=== PATIENT | male | born 1990 | race Caucasian/White ===

== ENCOUNTER 2016-08-15 07:14 | Emergency (ER) | payer OTHER ==
[~2016-08-15] VITALS: Ht 177.8 cm; Wt 68.0 kg
[2016-08-15 07:15] VITALS: BP 135/78; PULSE 97; RESP 18; TEMP 99.6; O2SAT 99
--- NOTE | 2016-08-15 07:15 | NUR ---
BROUGHT BACK TO BED #8 AND TRIAGED. REPORT GIVEN TO KAREL
--- NOTE | 2016-08-15 07:20 | NUR ---
Dr. Shipley at bedside examining patient.New orders received.
--- NOTE | 2016-08-15 07:25 | NUR ---
Patient brought in by mother with chief complaint of chills, fatigue, nausea and headache 5/10.Patient presents as awake,alert and oriented x 4,lethargic, verbalizing 5/10 headache.He states, "I've been feeling chills, nausea and tired since last night."No other complaints, injury per patient, none noted.
[2016-08-15] MEDS ORDERED: NACL 0.9% 1,000 ML IV ONE (07:45)
[2016-08-15] MEDS ORDERED: ACETAMINOPHEN 500 MG TABLET PO ONE (07:45)
[2016-08-15] MEDS ORDERED: cefTRIAXone 1 GM IVPB PREMIX 50 ML IV ONE (07:45)
--- NOTE | 2016-08-15 07:50 | NUR ---
Patient off unit for CT scan.
[2016-08-15 07:51] LABS: BILIRUBIN,URINE NEGATIVE (NEGATIVE); CLARITY/URINE CLEAR (CLEAR); COLOR,URINE YELLOW (YELLOW); GLUCOSE,URINE NEGATIVE (NEGATIVE); KETONES,URINE 2+ (NEGATIVE); LEUKOCYTE ESTERASE ,URINE NEGATIVE (NEGATIVE); NITRITE, URINE NEGATIVE (NEGATIVE); PH,URINE 6.5 (5.0-8.0); PROTEIN URINE TRACE (NEGATIVE)
[2016-08-15 07:54] LABS: BLOOD, URINE TRACE (NEGATIVE)
[2016-08-15 07:57] LABS: BACTERIA,URINE FEW /HPF (None Seen); MUCUS,URINE None Seen /LPF (None Seen); RBC,URINE 0-3 /HPF (0-3); WBC,URINE 0-3 /HPF (0-3)
[2016-08-15 08:04] LABS: BARBITURATE, URINE NEGATIVE (NEG <=200); BENZODIAZEPINE, URINE NEGATIVE (NEG <=150); CANNABINOID, URINE NEGATIVE (NEG <=50); COCAINE, URINE NEGATIVE (NEG <=150); METHAMPHETAMINES SCREEN,URINE NEGATIVE (NEG <=500); OPIATE, URINE NEGATIVE (NEG <=100); PHENCYCLIDINE SCREEN,URINE NEGATIVE (NEG <=25); URINE AMPHETAMINE NEGATIVE (NEG <=500); URINE METHADONE NEGATIVE (NEG <=200)
[2016-08-15 08:05] LABS: UR TRICYCLIC ANTIDEPRESSANTS NEGATIVE (NEG <=300); URINE OXYCODONE SCREEN NEGATIVE (NEG <=100); URINE PROPOXYPHENE SCREEN NEGATIVE (NEG <=300)
--- NOTE | 2016-08-15 08:10 | NUR ---
Pt returned from CT to room ED 8.
--- NOTE | 2016-08-15 08:30 | NUR ---
Patient medicated as ordered.
[2016-08-15 08:59] LABS: PROTHROMBIN TIME 11.2 SECS (9.5-12.5)
[2016-08-15 09:09] LABS: ANION GAP 10 (5-15); CALCIUM 9.5 mg/dL (8.4-11.0); CHLORIDE 101 mmol/L (98-107); CREATININE 1.03 mg/dL (0.55-1.30); GLUCOSE 127 mg/dL (70-99); POTASSIUM 3.9 mmol/L (3.5-5.1); SODIUM SERUM 136 mmol/L (136-145); UREA NITROGEN, BLOOD 9 mg/dL (8-21)
[2016-08-15 09:10] LABS: GFR AFRICAN AMERICAN 113 mL/min (>90)
[2016-08-15 09:17] LABS: BASOPHILS # (AUTO) 0.1 K/uL (0.0-0.2); BASOPHILS % (AUTO) 0.6 % (0.0-2.0); EOSINOPHILS # (AUTO) 0.2 K/uL (0.0-0.4); EOSINOPHILS % (AUTO) 1.1 % (0.0-4.0); HEMATOCRIT 45.4 % (36-54); HEMOGLOBIN 15.4 g/dL (14.0-18.0); LYMPHOCYTES # (AUTO) 0.9 K/uL (1.0-5.5); LYMPHOCYTES % (AUTO) 4.6 % (20.5-51.5); MEAN CORPUSCULAR HEMOGLOBIN 29 pg (27-31); MEAN CORPUSCULAR HGB CONC 34 % (32-36); MEAN CORPUSCULAR VOLUME 85 fL (79.0-98.0); MONOCYTES # (AUTO) 1.2 K/uL (0.0-1.0); MONOCYTES % (AUTO) 6.1 % (1.7-9.3); NEUTROPHILS # (AUTO) 16.6 K/uL (1.8-7.7); NEUTROPHILS % (AUTO) 87.6 % (40.0-70.0); PLATELET COUNT (AUTO) 247 K/uL (130-430); RED BLOOD CELL COUNT(AUTO) 5.32 MIL/uL (4.2-6.2); RED CELL DISTRIBUTION WIDTH 12.1 % (9.0-15.0)
[2016-08-15 09:18] LABS: ALANINE AMINOTRANSFERASE 20 U/L (12-78); ALBUMIN 4.7 g/dL (3.4-4.8); ASPARTATE AMINOTRANSFERASE 11 U/L (10-37); FREE T4 (FREE THYROXINE) 0.8 ng/dL (0.6-1.6); TOTAL BILIRUBIN 0.7 mg/dL (0.0-1.0); TOTAL PROTEIN, SERUM 7.7 g/dL (6.4-8.3)
[2016-08-15 09:20] LABS: ALCOHOL, BLOOD < 3 mg/dL (<10)
[2016-08-15] MEDS ORDERED: KETOROLAC TROMETHAMINE 30 MG VIAL IVP ONE (09:45)
[2016-08-15 10:05] VITALS: BP 124/65; PULSE 86; RESP 18; TEMP 98.2; O2SAT 100
--- NOTE | 2016-08-15 10:05 | NUR ---
Patient given written and verbal discharge instructions and verbalizes understanding. ER MD discussed with patient the results and treatment provided. Given copies of tests performed in ER. Patient in stable condition. ID arm band removed. IV catheter removed intact and dressing applied, no active bleeding. Rx of Augmentin and Motrin given. Patient educated on pain management and to follow up with PMD. Pain Scale 0/10. Opportunity for questions provided and answered.
== END 2016-08-15 10:05 | disposition home or self-care (01) ==
LOC: SED 07:14
DX: R50.9 Fever, unspecified (principal); R11.0 Nausea; R51 Headache
CPT/HCPCS: 36415; 70450; 71010; 74000; 80053; 80307; 81000; 83605; 84439; 85025; 85610; 85651; 87040; 93005; 96365; 96375; 99285; G0482; J0696; J1885; J7030